=== PATIENT | female | born 1950 | race African-American/Black ===

== ENCOUNTER 2020-08-17 15:13 | Inpatient (IN) | payer MEDICARE, MEDICAID ==
[~2020-08-17] VITALS: Ht 165.1 cm; Wt 49.9 kg
[2020-08-17] MEDS ORDERED: PANTOPRAZOLE SODIUM 40 MG/VIAL IV ONE (16:00)
[2020-08-17] MEDS ORDERED: DIPHENHYDRAMINE 50MG/ML VIAL IV ONE (16:00)
[2020-08-17 16:27] LABS: BASOPHILS % 0.9 % (0.0-2.0); EOSINOPHILS % 1.7 % (0.0-5.0); MEAN CORPUSCULAR HEMOGLOBIN 31.9 pg (28.0-32.0); MEAN CORPUSCULAR VOLUME 97.8 fL (81.0-99.0); MEAN PLATELET VOLUME 8.8 fl (7.4-10.4); NEUTROPHILS % 67.4 % (40.0-76.0); PLATELET 98 x1000/uL (130-400); RED BLOOD CELL COUNT 1.01 mill/uL (4.2-5.4); RED CELL DISTRIBUTION WIDTH 17.3 % (11.6-14.6)
[2020-08-17 16:36] LABS: PROTHROMBIN TIME 11.2 sec (9.6-11.0)
[2020-08-17 16:37] LABS: CHLORIDE 108 mEq/L (98-107)
[2020-08-17 16:55] LABS: HEMATOCRIT. 9.8 % (36.0-48.0)
[2020-08-17 16:56] LABS: HEMOGLOBIN. 3.2 g/dL (12.0-16.0)
[2020-08-17 18:44] LABS: EOSINOPHILS % 1.5 % (0.0-5.0); LYMPHOCYTES % 24.7 % (20.0-50.0); MEAN CORPUSCULAR HEMOGLOBIN 32.4 pg (28.0-32.0); MEAN PLATELET VOLUME 8.9 fl (7.4-10.4); MONOCYTES % 8.1 % (2.0-8.0); NEUTROPHILS % 64.7 % (40.0-76.0); PLATELET 105 x1000/uL (130-400); RED BLOOD CELL COUNT 0.96 mill/uL (4.2-5.4); RED CELL DISTRIBUTION WIDTH 17.5 % (11.6-14.6)
[2020-08-17 18:46] LABS: HEMOGLOBIN. 3.1 g/dL (12.0-16.0)
[2020-08-17 18:47] LABS: HEMATOCRIT. 9.4 % (36.0-48.0)
[2020-08-17] MEDS ORDERED: CALCIUM CHLORIDE 1GM/10ML SYR IV ONE (19:00)
[2020-08-17] MEDS ORDERED: INSULIN REGULAR (HUMULIN R) 300UNITS/3ML VIAL IV ONE (19:00)
[2020-08-17] MEDS ORDERED: DEXTROSE 50% WATER 50ML SYRINGE IV ONE (19:00)
[2020-08-17] MEDS ORDERED: SODIUM POLYSTYRENE SULFONATE 15 G/60 ML BOT PO ONE (19:00)
[2020-08-17] MEDS ORDERED: SODIUM BICARBONATE 8.4% 1 MEQ/ML 50ML SYR IV ONE (19:00)
[2020-08-17 21:29] LABS: CLARITY URINE CLEAR (CLEAR); COLOR URINE YELLOW (YELLOW); KETONES URINE NEGATIVE (NEGATIVE); LEUKOCYTE ESTERASE URINE NEGATIVE (NEGATIVE); NITRITE URINE NEGATIVE (NEGATIVE); OCCULT BLOOD URINE 1+ (NEGATIVE); PROTEIN URINE 3+ (NEGATIVE); SPECIFIC GRAVITY URINE 1.012 (1.005-1.030); UROBILINOGEN URINE 0.2 E.U./dL (0.2-1.0)
[2020-08-17] MEDS ORDERED: ENOXAPARIN 40MG/0.4ML SYR SUBCUT SCH (23:00)
[2020-08-17] MEDS ORDERED: ACETAMINOPHEN 325MG TABLET PO PRN (23:00)
[2020-08-17] MEDS ORDERED: MORPHINE SULFATE 2 MG/ML CPJ (NOT FOR IM USE) IV PRN (23:00)
[2020-08-17] MEDS ORDERED: ONDANSETRON HCL 4MG/2ML INJ IV PRN (23:00)
[2020-08-17] MEDS ORDERED: LORAZEPAM 2MG/ML CPJ IV PRN (23:00)
[2020-08-17] MEDS: DIPHENHYDRAMINE 50MG/ML VIAL IV PRN (23:23)
[2020-08-18] VITALS (20 sets, daily range): BP systolic 159–224; BP diastolic 62–98
[2020-08-18] MEDS: CLONIDINE 0.1MG TABLET PO PRN ×2 (01:00→15:11)
[2020-08-18 08:07] LABS: BASOPHILS % 0.9 % (0.0-2.0); EOSINOPHILS % 2.6 % (0.0-5.0); LYMPHOCYTES % 24.3 % (20.0-50.0); MEAN CORPUSCULAR HEMOGLOBIN 31.5 pg (28.0-32.0); MEAN CORPUSCULAR VOLUME 94.8 fL (81.0-99.0); MEAN PLATELET VOLUME 8.5 fl (7.4-10.4); MONOCYTES % 11.5 % (2.0-8.0); NEUTROPHILS % 60.7 % (40.0-76.0); PLATELET 108 x1000/uL (130-400); RED BLOOD CELL COUNT 1.41 mill/uL (4.2-5.4); RED CELL DISTRIBUTION WIDTH 15.7 % (11.6-14.6)
[2020-08-18 08:13] LABS: HEMATOCRIT. 13.4 % (36.0-48.0); HEMOGLOBIN. 4.4 g/dL (12.0-16.0)
[2020-08-18] MEDS: METOPROLOL TARTRATE 25MG TABLET PO SCH ×3 (08:20→20:30)
[2020-08-18] MEDS: MULTIVITAMINS,THER W-MINERALS TABLET PO SCH (08:21)
[2020-08-18] MEDS ORDERED: LISINOPRIL 10MG TABLET PO SCH (09:00)
[2020-08-18] MEDS: HYDROCODONE/ACETAMINOPHEN 5/325MG TABLET PO PRN (09:11)
[2020-08-18] MEDS: DIPHENHYDRAMINE 50MG/ML VIAL IV PRN ×2 (10:11→19:48)
[2020-08-18] MEDS: LISINOPRIL 10MG TABLET PO SCH (13:13)
[2020-08-18] MEDS: OMEPRAZOLE 20MG CAPSULE EXTENDED RELEASE PO SCH (13:13)
[2020-08-18 17:36] LABS: HEMATOCRIT 26.7 % (36.0-48.0); HEMOGLOBIN 9.4 g/dL (12.0-16.0)
[2020-08-18] MEDS: CLONIDINE 0.2MG TABLET PO SCH (20:31)
[2020-08-18] MEDS ORDERED: CLONIDINE 0.2MG TABLET PO SCH (22:00)
[2020-08-19] VITALS (8 sets, daily range): BP systolic 153–214; BP diastolic 64–95
[2020-08-19] MEDS: CLONIDINE 0.1MG TABLET PO PRN ×4 (01:13→15:27)
[2020-08-19] MEDS: CLONIDINE 0.2MG TABLET PO SCH ×4 (04:19→21:08)
[2020-08-19] MEDS: OMEPRAZOLE 20MG CAPSULE EXTENDED RELEASE PO SCH (06:45)
[2020-08-19 07:32] LABS: BASOPHILS % 0.7 % (0.0-2.0); HEMATOCRIT. 27.4 % (36.0-48.0); HEMOGLOBIN. 9.3 g/dL (12.0-16.0); LYMPHOCYTES % 18.6 % (20.0-50.0); MEAN CORPUSCULAR HEMOGLOBIN 30.5 pg (28.0-32.0); MEAN CORPUSCULAR VOLUME 89.7 fL (81.0-99.0); MEAN PLATELET VOLUME 8.7 fl (7.4-10.4); MONOCYTES % 10.7 % (2.0-8.0); PLATELET 99 x1000/uL (130-400); RED BLOOD CELL COUNT 3.06 mill/uL (4.2-5.4)
[2020-08-19 07:42] LABS: PHOSPHORUS 4.7 mg/dL (2.5-4.9)
[2020-08-19] MEDS: MULTIVITAMINS,THER W-MINERALS TABLET PO SCH (08:14)
[2020-08-19 08:15] LABS: FOLIC ACID (FOLATE) SERUM 7.8 ng/mL (>5.38)
[2020-08-19] MEDS: LISINOPRIL 10MG TABLET PO SCH (08:15)
[2020-08-19] MEDS: METOPROLOL TARTRATE 25MG TABLET PO SCH ×2 (08:15→21:08)
[2020-08-19] MEDS ORDERED: LIDOCAINE HCL 1% 20ML VIAL (Pyxis) INJ ONE (09:34)
[2020-08-19] MEDS ORDERED: SODIUM BICARBONATE 4% (2.4MEQ) 5ML VIAL IV ONE (09:34)
[2020-08-19] MEDS: HYDROCODONE/ACETAMINOPHEN 5/325MG TABLET PO PRN ×2 (11:08→15:28)
[2020-08-19] MEDS ORDERED: MINOXIDIL 2.5MG TABLET PO NR (12:30)
[2020-08-19] MEDS ORDERED: HYDRALAZINE HCL 100MG TABLET PO NR (12:30)
[2020-08-19] MEDS: DIPHENHYDRAMINE 50MG/ML VIAL IV PRN (15:35)
[2020-08-19] MEDS: NIFEDIPINE XL 60MG TAB PO NR ×2 (17:35→17:57)
[2020-08-19] MEDS ORDERED: MINOXIDIL 2.5MG TABLET PO SCH (21:00)
[2020-08-19] MEDS ORDERED: HYDRALAZINE HCL 100MG TABLET PO SCH (22:00)
== END 2020-08-19 22:25 | disposition home or self-care (01) | DRG 432 ==
LOC: ER 15:13 → 5EST 18:55 → ENRESERV 22:10 → SUPCPDRO 22:56 → 8WST 08-19 01:08
PROVIDERS: ADMIT Internal Medicine Nephrology; ATTEND Internal Medicine Nephrology
PROC: 30233N1 Transfusion of Nonautologous Red Blood Cells into Peripheral Vein, Percutaneous Approach (ICD-10-PCS; principal; 2020-08-17)
PROC: 5A1D70Z Performance of Urinary Filtration, Intermittent, Less than 6 Hours Per Day (ICD-10-PCS; 2020-08-18)
PROC: 0W9G3ZZ Drainage of Peritoneal Cavity, Percutaneous Approach (ICD-10-PCS; 2020-08-19)
DX: K74.60 Unspecified cirrhosis of liver (principal); K85.90 Acute pancreatitis without necrosis or infection, unspecified; E43 Unspecified severe protein-calorie malnutrition; N18.6 End stage renal disease; D61.818 Other pancytopenia; I13.2 Hypertensive heart and chronic kidney disease with heart failure and with stage 5 chronic kidney disease, or end stage renal disease; I31.3 Pericardial effusion (noninflammatory); J98.11 Atelectasis; K22.10 Ulcer of esophagus without bleeding; R18.8 Other ascites; Z68.1 Body mass index [BMI] 19.9 or less, adult; I50.9 Heart failure, unspecified; E87.5 Hyperkalemia; B19.20 Unspecified viral hepatitis C without hepatic coma; D50.9 Iron deficiency anemia, unspecified; F17.210 Nicotine dependence, cigarettes, uncomplicated; I27.20 Pulmonary hypertension, unspecified; J44.9 Chronic obstructive pulmonary disease, unspecified; K29.70 Gastritis, unspecified, without bleeding; K29.80 Duodenitis without bleeding; K44.9 Diaphragmatic hernia without obstruction or gangrene; Z20.822 Contact with and (suspected) exposure to COVID-19; K57.30 Diverticulosis of large intestine without perforation or abscess without bleeding; K64.8 Other hemorrhoids; F19.10 Other psychoactive substance abuse, uncomplicated; K80.20 Calculus of gallbladder without cholecystitis without obstruction; L29.9 Pruritus, unspecified; Z90.710 Acquired absence of both cervix and uterus; Z99.2 Dependence on renal dialysis; Z71.6 Tobacco abuse counseling
CPT/HCPCS: 36415; 49083; 71045; 74176; 80048; 80053; 81003; 82040; 82150; 82270; 82607; 82728; 82746; 82962; 83540; 83550; 83735; 84075; 84100; 84484; 85014; 85018; 85025; 85044; 86850; 86900; 86920; 87426; 88108; 93005; 99291; C9113; J1200; J1815; J2060; J2405; J3490; P9016